=== PATIENT | male | born 1990 | race African-American/Black ===

== ENCOUNTER 2024-06-22 21:50 | Emergency (ER) | payer OTHER ==
[~2024-06-22] VITALS: Ht 198.1 cm; Wt 137.0 kg
[2024-06-22 21:59] VITALS: O2SAT 99
[2024-06-22 23:25] LABS: BASOPHILS % 0.7 % (0.0-2.0); EOSINOPHILS % 3.3 % (0.0-5.0); HEMATOCRIT. 44.8 % (42.0-52.0); HEMOGLOBIN. 15.3 g/dL (14.0-18.0); LYMPHOCYTES % 20.4 % (20.0-50.0); MEAN CORPUSCULAR HEMOGLOBIN 30.1 pg (28.0-32.0); MEAN CORPUSCULAR HGB CONC 34.1 g/dL (31.0-37.0); MEAN CORPUSCULAR VOLUME 88.2 fL (80.0-94.0); MEAN PLATELET VOLUME 7.9 fl (7.4-10.4); NEUTROPHILS % 67.6 % (40.0-76.0); PLATELET 332 x1000/uL (130-400); RED BLOOD CELL COUNT 5.07 mill/uL (4.7-6.1); RED CELL DISTRIBUTION WIDTH 14.3 % (11.6-14.6); WHITE BLOOD COUNT 10.5 x1000/uL (4.5-11.0)
[2024-06-22 23:34] LABS: CHLORIDE 101 mEq/L (98-107); POTASSIUM 3.7 mEq/L (3.5-5.1); SODIUM 138 mEq/L (136-145)
[2024-06-22 23:35] LABS: CALCIUM 9.9 mg/dL (8.7-10.4); CARBON DIOXIDE 29 mEq/L (21-32)
[2024-06-22 23:40] LABS: CREATININE 1.1 mg/dL (0.6-1.3); GLUCOSE 88 mg/dL (70-105); UREA NITROGEN BLOOD 8 mg/dL (9-23)
[2024-06-22 23:41] LABS: TROPONIN I HIGH SENSITIVITY 4 ng/L (3.0-53)
[2024-06-23] MEDS: KETOROLAC 15MG/ML VIAL IM ONE (01:44)
[2024-06-23 01:45] VITALS: BP 134/83; PULSE 66; RESP 16; TEMP 37.3; O2SAT 100
[2024-06-23] MEDS ORDERED: BENZ100C86 MT (02:14)
== END 2024-06-23 02:22 | disposition home or self-care (01) ==
LOC: ER 21:50
DX: J06.9 Acute upper respiratory infection, unspecified (principal); B97.89 Other viral agents as the cause of diseases classified elsewhere; R05.9 Cough, unspecified
CPT/HCPCS: 99284; 71045; 80048; 85025; 84484; 36415; 96372; J1885